=== PATIENT | male | born 2000 | race Caucasian/White ===

== ENCOUNTER 2024-02-16 14:07 | Emergency (ER) | payer OTHER ==
[~2024-02-16] VITALS: Ht 180.3 cm; Wt 90.3 kg
[2024-02-16 14:17] VITALS: BP 124/71; PULSE 60; RESP 18; TEMP 98.5; O2SAT 100
[2024-02-16] MEDS: LIDOCAINE 5% 1 EA PATCH TP ONE (14:35)
[2024-02-16] MEDS: KETOROLAC 30 MG/ML VIAL IM ONE (14:36)
[2024-02-16] MEDS ORDERED: LID5T TP (15:55)
[2024-02-16] MEDS ORDERED: IBUP-2213 PO (15:55)
[2024-02-16 16:00] VITALS: BP 124/71; PULSE 60; RESP 18; TEMP 98.5; O2SAT 100
[2024-02-17] MEDS ORDERED: NOREPINEPHRINE 4 MG/4 ML VIAL IV ONE (21:04)
== END 2024-02-16 16:00 | disposition home or self-care (01) ==
LOC: MED 14:07
DX: M54.6 Pain in thoracic spine (principal); M54.50 Low back pain, unspecified; Z79.899 Other long term (current) drug therapy; V89.2XXA Person injured in unspecified motor-vehicle accident, traffic, initial encounter; Y93.89 Activity, other specified; Y92.410 Unspecified street and highway as the place of occurrence of the external cause; Y99.8 Other external cause status
CPT/HCPCS: 72072; 72110; 96372; 99284; J1885; J3490